=== PATIENT | male | born 1965 | race American Indian/Alaskan Native ===

== ENCOUNTER 2022-01-04 21:35 | Emergency (ER) | payer MEDICARE ==
[2022-01-05 00:51] VITALS: BP 128/76
[2022-01-05 01:24] LABS: Basophils # (Auto) 0.1 K/mm3 (0.0-0.1); Basophils % (Auto) 1.2 % (0.0-1.8); Eosinophils # (Auto) 0.7 K/mm3 (0.0-0.4); Eosinophils % (Auto) 7.8 % (0.0-4.3); Hematocrit 38.6 % (35.5-45.6); Hemoglobin 12.7 gm/dl (11.8-15.2); Lymphocytes # (Auto) 2.7 K/mm3 (1.2-5.4); Lymphocytes % (Auto) 32.3 % (13.4-35.0); Mean Corpuscular HGB Conc 33 % (32-34); Mean Corpuscular Volume 90 fl (84-94); Monocytes # (Auto) 0.5 K/mm3 (0.0-0.8); Monocytes % (Auto) 6.4 % (0.0-7.3); Platelet Count 228 K/mm3 (140-440); Red Blood Count 4.27 M/mm3 (3.65-5.03); Red Cell Distribution Width 13.1 % (13.2-15.2)
[2022-01-05 01:29] LABS: Calcium 9.1 mg/dL (8.4-10.2)
[2022-01-05 02:27] LABS: Amphetamine Screen,Urine Negative; Bacteria,Urine 1+ /HPF (Negative); Benzodiazepines Screen,Urine Negative; Bilirubin,Urine NEG (Negative); Blood,Urine NEG (Negative); Cannabinoid Screen,Urine Negative; Cocaine Screen,Urine Negative; Color,Urine Yellow (Yellow); Hyaline Casts,Urine 21 /LPF; Methadone Screen,Urine Negative; Mucus,Urine FEW /HPF; Opiate Screen,Urine Negative; Urobilinogen,Urine < 2.0 mg/dL (<2.0); WBC,Urine < 1.0 /HPF (0.0-6.0)
--- NOTE | 2022-01-05 04:47 | Emergency Department Report ---
ED Medical Clearance HPI - General Chief complaint: Medical Clearance Stated complaint: MEDICAL CLEARANCE Time Seen by Provider: 01/05/22 03:52 Source: patient Mode of arrival: Ambulatory - History of Present Illness Initial comments: 56-year-old male patient at [place] left to go to [facility] today when he came back with advised he needs to be cleared to return to the facility for treatment. He reports no chest pain or palpitations, no nausea, no vomiting no fever, chills, sweats. No illicit drug use. Drug test was performed while outside and came reportedly negative. MD Complaint: medical clearance request Alledged Intoxication: No Compliant with Home Medications: No Traumatic Symptoms: denies traumatic injury Associated Symptoms: denies other symptoms Treatments Prior to Arrival: none Allergies/Adverse reactions: Allergies Allergy/AdvReac Type Severity Reaction Status Date / Time amoxicillin Allergy Itching Verified 01/05/22 00:53 metformin Allergy Hives Verified 01/05/22 00:53 ED Review of Systems ROS: Stated complaint: MEDICAL CLEARANCE Other details as noted in HPI Comment: All other systems reviewed and negative ED Past Medical Hx - Past Medical History Previous Medical History?: Yes Hx Diabetes: Yes - Surgical History Past Surgical History?: No - Social History Smoking Status: Current Every Day Smoker Substance Use Type: None ED Physical Exam - General Limitations: No Limitations General appearance: alert, in no apparent distress - Head Head exam: Present: atraumatic, normocephalic - Eye Eye exam: Present: normal appearance, PERRL, EOMI Pupils: Present: normal accommodation - ENT ENT exam: Present: normal exam, normal orophraynx, mucous membranes moist, TM's normal bilaterally - Neck Neck exam: Present: normal inspection, full ROM - Respiratory Respiratory exam: Present: normal lung sounds bilaterally. Absent: respiratory distress - Cardiovascular Cardiovascular Exam: Present: regular rate, normal rhythm. Absent: systolic murmur, diastolic murmur, rubs, gallop - GI/Abdominal GI/Abdominal exam: Present: soft, normal bowel sounds - Rectal Rectal exam: Present: deferred - Extremities Exam Extremities exam: Present: normal inspection - Back Exam Back exam: Present: normal inspection - Neurological Exam Neurological exam: Present: alert, oriented X3 - Psychiatric Psychiatric exam: Present: normal affect, normal mood - Skin Skin exam: Present: warm, dry, intact, normal color. Absent: rash ED Course Vital Signs 01/05/22 00:49 Temperature 98.6 F Pulse Rate 101 H Respiratory 18 Rate Blood Pressure 128/76 O2 Sat by Pulse 99 Oximetry ED Medical Decision Making - Lab Data Result diagrams: 01/05/22 00:57 01/05/22 00:57 ED Disposition Clinical Impression: Medical clearance for psychiatric admission Disposition: 01 HOME / SELF CARE / HOMELESS Is pt being admited?: No Does the pt Need Aspirin: No Condition: Stable Instructions: Medical Screening Exam Referrals: PRIMARY CARE [Primary Care Provider] - 3-5 Days
== END 2022-01-05 06:31 | disposition home or self-care (01) ==
LOC: ED 21:35
DX: E11.8 Type 2 diabetes mellitus with unspecified complications (principal); Z13.30 Encounter for screening examination for mental health and behavioral disorders, unspecified; F17.200 Nicotine dependence, unspecified, uncomplicated
CPT/HCPCS: 36415; 80048; 80307; 80320; 81001; 85025; 99283; G0480

== ENCOUNTER 2022-07-10 14:57 | Inpatient (IN) | payer MEDICARE ==
--- NOTE | 2022-07-11 20:40 | Consultation ---
History of Present Illness - Reason for Consult Consult date: 07/11/22 Requesting physician: TERESA ADAMS Medications and Allergies Allergies Allergy/AdvReac Type Severity Reaction Status Date / Time amoxicillin Allergy Itching Verified 01/05/22 00:53 metformin Allergy Hives Verified 01/05/22 00:53 Home Medications Medication Instructions Recorded Confirmed Last Taken Type Aspirin [Adult Aspirin] 81 mg PO DAILY 07/11/22 07/11/22 Unknown History Hydroxyzine HCl [hydrOXYzine] 50 mg PO TID PRN 07/11/22 07/11/22 Unknown History Insulin Detemir [Levemir VIAL] 20 units SUB-Q BID 07/11/22 07/11/22 Unknown History Omeprazole 40 mg PO DAILY 07/11/22 07/11/22 Unknown History Oxycodone HCl/Acetaminophen 1 each PO Q8H PRN 07/11/22 07/11/22 Unknown History [Oxycodone-Acetaminophen 10-325] Pravastatin [Pravachol] 40 mg PO DAILY 07/11/22 07/11/22 Unknown History Prazosin 1 mg PO QHS 07/11/22 07/11/22 Unknown History Pregabalin [Lyrica] 75 mg PO QAM&QHS 07/11/22 07/11/22 Unknown History Valsartan/Hydrochlorothiazide 1 tab PO DAILY 07/11/22 07/11/22 Unknown History [Valsartan-Hctz 160-12.5 mg Tab] amLODIPine [Norvasc] 5 mg PO DAILY 07/11/22 07/11/22 Unknown History glipiZIDE [Glucotrol] 10 mg PO BID 07/11/22 07/11/22 Unknown History traZODone [Desyrel] 50 mg PO QHS 07/11/22 07/11/22 Unknown History Active Meds: Active Medications Insulin Human Lispro (Insulin Lispro 100 Unit/Ml) 0 unit SUB-Q ACHS [facility]; Protocol Trazodone HCl (Trazodone 100 Mg Tab) 100 mg PO QHS [facility] Exam - Constitutional General appearance: Present: no acute distress, well-nourished - EENT Eyes: Present: PERRL ENT: hearing intact, clear oral mucosa - Neck Neck: Present: supple, normal ROM - Respiratory Respiratory effort: normal Respiratory: bilateral: CTA - Cardiovascular Heart Sounds: Present: S1 & S2. Absent: rub, click - Extremities Extremities: pulses symmetrical, No edema Peripheral Pulses: within normal limits - Abdominal General gastrointestinal: Present: soft, non-tender, non-distended, normal bowel sounds Male genitourinary: Present: normal - Integumentary Integumentary: Present: clear, warm, dry - Musculoskeletal Musculoskeletal: gait normal, strength equal bilaterally - Psychiatric Psychiatric: appropriate mood/affect, intact judgment & insight - Neurologic Neurologic: CNII-XII intact, moves all extremities
[2022-07-11] MEDS: traZODone 100 MG TAB PO SCH (21:03)
[2022-07-11 21:53] LABS: Basophils # (Auto) 0.2 K/mm3 (0.0-0.1); Basophils % (Auto) 2.3 % (0.0-1.8); Eosinophils # (Auto) 0.3 K/mm3 (0.0-0.4); Eosinophils % (Auto) 3.8 % (0.0-4.3); Hematocrit 32.4 % (35.5-45.6); Hemoglobin 11.1 gm/dl (11.8-15.2); Lymphocytes # (Auto) 1.8 K/mm3 (1.2-5.4); Lymphocytes % (Auto) 21.4 % (13.4-35.0); Mean Corpuscular HGB Conc 34 % (32-34); Mean Corpuscular Volume 87 fl (84-94); Monocytes # (Auto) 0.7 K/mm3 (0.0-0.8); Monocytes % (Auto) 8.5 % (0.0-7.3); Platelet Count 341 K/mm3 (140-440); Red Blood Count 3.71 M/mm3 (3.65-5.03); Red Cell Distribution Width 14.4 % (13.2-15.2)
[2022-07-11] MEDS: INSULIN LISPRO 100 UNIT/ML SUB-Q SCH (22:03)
[2022-07-11 22:09] LABS: Alanine Aminotransferase 10 units/L (7-56); Albumin 3.2 g/dL (3.9-5); BUN/Creatinine Ratio 14; Blood Urea Nitrogen 18 mg/dL (9-20); Calcium 8.8 mg/dL (8.4-10.2); Hemolysis Index 2
[2022-07-11 22:31] LABS: Chol/HDL Ratio 3.58 %
[2022-07-12] MEDS: INSULIN LISPRO 100 UNIT/ML SUB-Q SCH ×4 (07:30→21:21)
--- NOTE | 2022-07-12 09:27 | History and Physical Report ---
GP History & Physical - History of Present Illness Date of admission: 07/11/22 Date of Examination: 07/12/22 Reason for Admission: Danger to self, Failure of Outpatient Treatment, Severe anxiety/depression History of Present Illness: The patient was seen today. He has a stated history of PTSD, and Bipolar. He was admitted to [facility] for suicide attempt by plan to overdose on Cocaine. The patient says he is severely depressed. He says he has been off his meds for about a month. He could not recall any of his meds but vistaril. The patient still endorses suicidal thoughts with a plan to overdose. He does have a past attempt of suicide in the past. He denies homicidal thoughts and hallucinations. PAST PSYCHIATRIC HISTORY: Diagnoses: Bipolar Disorder, PTSD Suicide attempts or Self-harm behavior: Yes Prior psychiatric hospitalizations: Yes Substance Abuse history: Cocaine Previous psychiatric medications tried: Vistaril Outpatient treatment: Yes PAST MEDICAL HISTORY: Chronic neck pain Family Psychiatric History: None reported or documented SOCIAL HISTORY Marital Status: Living Arrangements: alone Employment Status: Unemployed Access to guns/weapons: Denies Education: History of Abuse:Denies Legal History: Denies REVIEW OF SYSTEMS Constitutional: Negative for weight loss ENT: Negative for stridor Respiratory: Negative for cough or hemoptysis All other systems reviewed and are negative MENTAL STATUS EXAMINATION General Appearance and Behavior: Age appropriate, wearing appropriate clothes, cooperative, polite with questioning, good eye contact Cooperation: cooperative Psychomotor Behavior: Psychomotor normal Mood: "Severely Depressed" Affect and affective range: congruent with stated affect, tearful Thought Process: Goal directed Thought Content: Reality oriented Speech: Normal volume, Regular rate and rhythm Suicidal Ideation: Yes Homicidal Ideation: Denies Hallucination: Denies Delusions: Denies Impulse Control: Limited Insight and Judgment: Limited Memory: Intact Attention: attentive Orientation: Alert and oriented Diagnoses: Bipolar Disorder Treatment Plan Patient admitted for inpatient psychiatric evaluation, medication adjustment and close monitoring The patient's behavior, mood, sleep and appetite will be closely monitored. Patient enrolled in individual and group therapeutic sessions and encouraged to attend. Patient provided with a safe and structured environment. Patient's physical health needs will be addressed by the Hospitalist. Hospitalist Consulted Labs including CBC, CMP, Lipid profile and Hemoglobin A1C levels ordered for baseline reference Social Assessment will be completed and the Telephone Solicitor will work with patient and family to ensure a suitable and safe disposition Medication adjustment will be made as clinically indicated Continue home meds Start Depkoate DR 125mg po BID Usual Wellness Voodoo/Preservation: - Start Trazodone 50 mg po QHS & 50 mg po QHS PRN between 10 PM & 2 AM for insomnia - Start Melatonin 5 mg po QHS to promote circadian rhythm The patient agreed on the treatment plan, understood the risk, benefit, alternative treatment, potential consequence of no treatment, and gave informed consent. Estimated days: 7 Post hospital care: primary care provider, psychiatric provider Case staffed with Dr. Gleason Legal Status: Voluntary Reaction to Hospitalization: Accepting Medications and Allergies Allergies Allergy/AdvReac Type Severity Reaction Status Date / Time amoxicillin Allergy Itching Verified 01/05/22 00:53 metformin Allergy Hives Verified 01/05/22 00:53 Home Medications Medication Instructions Recorded Confirmed Last Taken Type Aspirin [Adult Aspirin] 81 mg PO DAILY 07/11/22 07/11/22 Unknown History Hydroxyzine HCl [hydrOXYzine] 50 mg PO TID PRN 07/11/22 07/11/22 Unknown History Insulin Detemir [Levemir VIAL] 20 units SUB-Q BID 07/11/22 07/11/22 Unknown History Omeprazole 40 mg PO DAILY 07/11/22 07/11/22 Unknown History Oxycodone HCl/Acetaminophen 1 each PO Q8H PRN 07/11/22 07/11/22 Unknown History [Oxycodone-Acetaminophen 10-325] Pravastatin [Pravachol] 40 mg PO DAILY 07/11/22 07/11/22 Unknown History Prazosin 1 mg PO QHS 07/11/22 07/11/22 Unknown History Pregabalin [Lyrica] 75 mg PO QAM&QHS 07/11/22 07/11/22 Unknown History Valsartan/Hydrochlorothiazide 1 tab PO DAILY 07/11/22 07/11/22 Unknown History [Valsartan-Hctz 160-12.5 mg Tab] amLODIPine [Norvasc] 5 mg PO DAILY 07/11/22 07/11/22 Unknown History glipiZIDE [Glucotrol] 10 mg PO BID 07/11/22 07/11/22 Unknown History traZODone [Desyrel] 50 mg PO QHS 08/27/22 08/27/22 Unknown History Active Meds: Active Medications Insulin Human Lispro (Insulin Lispro 100 Unit/Ml) 0 unit SUB-Q ACHS [facility]; Protocol Last Admin: 07/11/22 22:03 Dose: 10 unit Trazodone HCl (Trazodone 100 Mg Tab) 100 mg PO QHS [facility] Last Admin: 07/11/22 21:03 Dose: 100 mg Results - Results Labs/Vitals: Laboratory Last Values WBC 8.3 K/mm3 (4.5-11.0) 07/11/22 21:35 RBC 3.71 M/mm3 (3.65-5.03) 07/11/22 21:35 Hgb 11.1 gm/dl (11.8-15.2) L 07/11/22 21:35 Hct 32.4 % (35.5-45.6) L 07/11/22 21:35 MCV 87 fl (84-94) 07/11/22 21:35 MCH 30 pg (28-32) 07/11/22 21:35 MCHC 34 % (32-34) 07/11/22 21:35 RDW 14.4 % (13.2-15.2) 07/11/22 21:35 Plt Count 341 K/mm3 (140-440) 07/11/22 21:35 Lymph % (Auto) 21.4 % (13.4-35.0) 07/11/22 21:35 [place] % (Auto) 8.5 % (0.0-7.3) H 07/11/22 21:35 Eos % (Auto) 3.8 % (0.0-4.3) 07/11/22 21:35 Baso % (Auto) 2.3 % (0.0-1.8) H 07/11/22 21:35 Lymph # (Auto) 1.8 K/mm3 (1.2-5.4) 07/11/22 21:35 [place] # (Auto) 0.7 K/mm3 (0.0-0.8) 07/11/22 21:35 Eos # (Auto) 0.3 K/mm3 (0.0-0.4) 07/11/22 21:35 Baso # (Auto) 0.2 K/mm3 (0.0-0.1) H 07/11/22 21:35 Seg Neutrophils % 64.0 % (40.0-70.0) 07/11/22 21:35 Seg Neutrophils # 5.3 K/mm3 (1.8-7.7) 07/11/22 21:35 Sodium 135 mmol/L (137-145) L 07/11/22 21:35 Potassium 4.2 mmol/L (3.6-5.0) 07/11/22 21:35 Chloride 101.8 mmol/L (98-107) 07/11/22 21:35 Carbon Dioxide 25 mmol/L (22-30) 07/11/22 21:35 Anion Gap 12 mmol/L 07/11/22 21:35 BUN 18 mg/dL (9-20) 07/11/22 21:35 Creatinine 1.3 mg/dL (0.8-1.3) 07/11/22 21:35 Estimated GFR > 60 ml/min 07/11/22 21:35 BUN/Creatinine Ratio 14 % 07/11/22 21:35 Glucose 315 mg/dL (75-100) H 07/11/22 21:35 POC Glucose 132 mg/dL (70-105) H 07/12/22 06:27 Hemoglobin A1c 10.9 % (4-6) H 07/11/22 21:35 Calcium 8.8 mg/dL (8.4-10.2) 07/11/22 21:35 Total Bilirubin 0.20 mg/dL (0.1-1.2) 07/11/22 21:35 AST 10 units/L (5-40) 07/11/22 21:35 ALT 10 units/L (7-56) 07/11/22 21:35 Alkaline Phosphatase 88 units/L (35-129) 07/11/22 21:35 Total Protein 6.2 g/dL (6.3-8.2) L 07/11/22 21:35 Albumin 3.2 g/dL (3.9-5) L 07/11/22 21:35 Albumin/Globulin Ratio 1.1 % 07/11/22 21:35 Triglycerides 117 mg/dL (2-149) 07/11/22 21:35 Cholesterol 104 mg/dL (50-199) 07/11/22 21:35 LDL Cholesterol Direct 49 mg/dL (50-130) L 07/11/22 21:35 HDL Cholesterol 29 mg/dL (40-59) L 07/11/22 21:35 Cholesterol/HDL Ratio 3.58 % 07/11/22 21:35 TSH 0.808 mlU/mL (0.270-4.200) 07/11/22 21:35 Last Vital Signs Temp 99.0 F 07/11/22 22:00 Pulse 91 H 07/11/22 22:00 Resp 18 07/11/22 22:00 BP 113/61 07/11/22 22:00 Pulse Ox 96 07/11/22 22:00 Physical Examination - Constitutional Vitals: Vital Signs Temp Pulse Resp BP Pulse Ox 99.0 F 91 H 18 113/61 96 07/11/22 22:00 07/11/22 22:00 07/11/22 22:00 07/11/22 22:00 07/11/22 22:00 Temperature -Last 24 Hours Temperature 99.0 F Mental Status Exam - Vital signs Last Vital Signs Temp 99.0 F 07/11/22 22:00 Pulse 91 H 07/11/22 22:00 Resp 18 07/11/22 22:00 BP 113/61 07/11/22 22:00 Pulse Ox 96 07/11/22 22:00 Physician Certification - Certification Statement Physician Certification Statement: This is an acknowledgement statement that GEMINI BAUMANN is a 57 year old M who requires inpatient psychiatric admission for treatment which could reasonably be expected to improve the patient's condition for Estimated period of time patient will need to remain in the hospital: [ ] Plan for post-hospital care: [ ]
[2022-07-12] MEDS ORDERED: hydrOXYzine HCL 25 MG TAB PO PRN (09:32)
[2022-07-12] MEDS ORDERED: NON-FORMULARY EACH (Omeprazole [Omeprazole] 40 MG Capsule.Dr) PO SCH (10:00)
[2022-07-12] MEDS ORDERED: NON-FORMULARY EACH (Insulin Detemir [Levemir Vial] 100 UNIT/ML Vial) SUB-Q SCH (10:00)
[2022-07-12] MEDS: amLODIPine 5 MG TAB PO SCH (10:15)
[2022-07-12] MEDS: VALSARTAN 160MG TAB PO SCH (10:15)
[2022-07-12] MEDS: hydroCHLOROthiazide 12.5 MG CAP PO SCH (10:17)
[2022-07-12] MEDS: PRAVASTATIN 40 MG TAB PO SCH (10:24)
[2022-07-12] MEDS: PREGABALIN 75 MG CAP PO SCH ×2 (10:25→21:18)
[2022-07-12] MEDS: DIVALPROEX DR 125 MG TAB PO SCH ×2 (10:25→21:18)
[2022-07-12] MEDS: PANTOPRAZOLE 40 MG TAB PO SCH (10:25)
[2022-07-12] MEDS: ASPIRIN EC 81 MG TAB PO SCH (10:25)
[2022-07-12] MEDS: glipiZIDE 10 MG TAB PO SCH ×2 (10:26→21:18)
[2022-07-12] MEDS: INSULIN GLARGINE 100 UNITS/ML SUB-Q SCH ×2 (10:33→22:41)
[2022-07-12] MEDS: traZODone 100 MG TAB PO SCH (21:18)
[2022-07-12] MEDS: PRAZOSIN 1 MG CAP PO SCH (21:19)
[2022-07-13] MEDS: INSULIN LISPRO 100 UNIT/ML SUB-Q SCH ×4 (08:30→21:11)
[2022-07-13] MEDS: glipiZIDE 10 MG TAB PO SCH ×2 (08:44→16:54)
--- NOTE | 2022-07-13 09:57 | Progress Note ---
Subjective Date of service: 07/13/22 Principal diagnosis: Major Depressive disorder, Cocaine Use Disorder Subjective Comment: The patient was seen today. He says he is still depressed. He still endorses SI. When asked about a plan, the patient says "I've been trying to think of one." He says he did not sleep well. He says he has a headache. REVIEW OF SYSTEMS Constitutional: Negative for weight loss ENT: Negative for stridor Respiratory: Negative for cough or hemoptysis All other systems reviewed and are negative MENTAL STATUS EXAMINATION General Appearance and Behavior: Age appropriate, wearing appropriate clothes, cooperative, polite with questioning, good eye contact Cooperation: cooperative Psychomotor Behavior: Psychomotor normal Mood: "Severely Depressed" Affect and affective range: congruent with stated affect, tearful Thought Process: Goal directed Thought Content: Reality oriented Speech: Normal volume, Regular rate and rhythm Suicidal Ideation: Yes Homicidal Ideation: Denies Hallucination: Denies Delusions: Denies Impulse Control: Limited Insight and Judgment: Limited Memory: Intact Attention: attentive Orientation: Alert and oriented Diagnoses: Bipolar Disorder Treatment Plan Patient admitted for inpatient psychiatric evaluation, medication adjustment and close monitoring The patient's behavior, mood, sleep and appetite will be closely monitored. Patient enrolled in individual and group therapeutic sessions and encouraged to attend. Patient provided with a safe and structured environment. Patient's physical health needs will be addressed by the Hospitalist. Hospitalist Consulted Labs including CBC, CMP, Lipid profile and Hemoglobin A1C levels ordered for baseline reference Social Assessment will be completed and the Cash Van Salesperson will work with patient and family to ensure a suitable and safe disposition Medication adjustment will be made as clinically indicated Start Ibuprofen 400mg po q6h prn pain Increase Depkoate DR 250mg po BID Usual Wellness Ep[employer]/Preservation: - Start Trazodone 50 mg po QHS & 50 mg po QHS PRN between 10 PM & 2 AM for insomnia - Start Melatonin 5 mg po QHS to promote circadian rhythm The patient agreed on the treatment plan, understood the risk, benefit, alternative treatment, potential consequence of no treatment, and gave informed consent. Estimated days: 7 Post hospital care: primary care provider, psychiatric provider Case staffed with Dr. Gleason Medications and Allergies Allergies Allergy/AdvReac Type Severity Reaction Status Date / Time amoxicillin Allergy Itching Verified 01/05/22 00:53 metformin Allergy Hives Verified 01/05/22 00:53 Home Medications Medication Instructions Recorded Confirmed Last Taken Type Aspirin [Adult Aspirin] 81 mg PO DAILY 07/11/22 07/11/22 Unknown History Hydroxyzine HCl [hydrOXYzine] 50 mg PO TID PRN 07/11/22 07/11/22 Unknown History Insulin Detemir [Levemir VIAL] 20 units SUB-Q BID 07/11/22 07/11/22 Unknown History Omeprazole 40 mg PO DAILY 07/11/22 07/11/22 Unknown History Oxycodone HCl/Acetaminophen 1 each PO Q8H PRN 07/11/22 07/11/22 Unknown History [Oxycodone-Acetaminophen 10-325] Pravastatin [Pravachol] 40 mg PO DAILY 07/11/22 07/11/22 Unknown History Prazosin 1 mg PO QHS 07/11/22 07/11/22 Unknown History Pregabalin [Lyrica] 75 mg PO QAM&QHS 07/11/22 07/11/22 Unknown History Valsartan/Hydrochlorothiazide 1 tab PO DAILY 07/11/22 07/11/22 Unknown History [Valsartan-Hctz 160-12.5 mg Tab] amLODIPine [Norvasc] 5 mg PO DAILY 07/11/22 07/11/22 Unknown History glipiZIDE [Glucotrol] 10 mg PO BID 07/11/22 07/11/22 Unknown History traZODone [Desyrel] 50 mg PO QHS 07/11/22 07/11/22 Unknown History Active Meds: Active Medications Amlodipine Besylate (Amlodipine 5 Mg Tab) 5 mg PO DAILY [facility] Last Admin: 07/12/22 10:15 Dose: Not Given Aspirin (Aspirin Ec 81 Mg Tab) 81 mg PO DAILY [facility] Last Admin: 07/12/22 10:25 Dose: 81 mg Divalproex Sodium (Divalproex Dr 125 Mg Tab) 125 mg PO BID [facility] Last Admin: 07/12/22 21:18 Dose: 125 mg Glipizide (Glipizide 10 Mg Tab) 10 mg PO BIDDIAB [facility] Last Admin: 07/13/22 08:44 Dose: 10 mg Hydrochlorothiazide (Hydrochlorothiazide 12.5 Mg Cap) 12.5 mg PO QDAY [facility] Last Admin: 07/12/22 10:17 Dose: Not Given Hydroxyzine HCl (Hydroxyzine Hcl 25 Mg Tab) 50 mg PO TID PRN PRN Reason: Anxiety Insulin Glargine (Insulin Glargine 100 Units/Ml) 20 units SUB-Q BID [facility] Last Admin: 07/12/22 22:41 Dose: 20 units Insulin Human Lispro (Insulin Lispro 100 Unit/Ml) 0 unit SUB-Q ACHS [facility]; Protocol Last Admin: 07/13/22 08:30 Dose: 3 unit Pantoprazole Sodium (Pantoprazole 40 Mg Tab) 40 mg PO QAM [facility] Last Admin: 07/12/22 10:25 Dose: 40 mg Pravastatin Sodium (Pravastatin 40 Mg Tab) 40 mg PO DAILY [facility] Last Admin: 07/12/22 10:24 Dose: 40 mg Prazosin HCl (Prazosin 1 Mg Cap) 1 mg PO QHS [facility] Last Admin: 07/12/22 21:19 Dose: 1 mg Pregabalin (Pregabalin 75 Mg Cap) 75 mg PO 1000,2200 [facility] Last Admin: 07/12/22 21:18 Dose: 75 mg Trazodone HCl (Trazodone 100 Mg Tab) 100 mg PO QHS [facility] Last Admin: 07/12/22 21:18 Dose: 100 mg Valsartan (Valsartan 160mg Tab) 160 mg PO QDAY [facility] Last Admin: 07/12/22 10:15 Dose: Not Given Results - Results Labs/Vitals: Laboratory Last Values WBC 8.3 K/mm3 (4.5-11.0) 07/11/22 21:35 RBC 3.71 M/mm3 (3.65-5.03) 07/11/22 21:35 Hgb 11.1 gm/dl (11.8-15.2) L 07/11/22 21:35 Hct 32.4 % (35.5-45.6) L 07/11/22 21:35 MCV 87 fl (84-94) 07/11/22 21:35 MCH 30 pg (28-32) 07/11/22 21:35 MCHC 34 % (32-34) 07/11/22 21:35 RDW 14.4 % (13.2-15.2) 07/11/22 21:35 Plt Count 341 K/mm3 (140-440) 07/11/22 21:35 Lymph % (Auto) 21.4 % (13.4-35.0) 07/11/22 21:35 [place] % (Auto) 8.5 % (0.0-7.3) H 07/11/22 21:35 Eos % (Auto) 3.8 % (0.0-4.3) 07/11/22 21:35 Baso % (Auto) 2.3 % (0.0-1.8) H 07/11/22 21:35 Lymph # (Auto) 1.8 K/mm3 (1.2-5.4) 07/11/22 21:35 [place] # (Auto) 0.7 K/mm3 (0.0-0.8) 07/11/22 21:35 Eos # (Auto) 0.3 K/mm3 (0.0-0.4) 07/11/22 21:35 Baso # (Auto) 0.2 K/mm3 (0.0-0.1) H 07/11/22 21:35 Seg Neutrophils % 64.0 % (40.0-70.0) 07/11/22 21:35 Seg Neutrophils # 5.3 K/mm3 (1.8-7.7) 07/11/22 21:35 Sodium 135 mmol/L (137-145) L 07/11/22 21:35 Potassium 4.2 mmol/L (3.6-5.0) 07/11/22 21:35 Chloride 101.8 mmol/L (98-107) 07/11/22 21:35 Carbon Dioxide 25 mmol/L (22-30) 07/11/22 21:35 Anion Gap 12 mmol/L 07/11/22 21:35 BUN 18 mg/dL (9-20) 07/11/22 21:35 Creatinine 1.3 mg/dL (0.8-1.3) 07/11/22 21:35 Estimated GFR > 60 ml/min 07/11/22 21:35 BUN/Creatinine Ratio 14 % 07/11/22 21:35 Glucose 315 mg/dL (75-100) H 07/11/22 21:35 POC Glucose 234 mg/dL (70-105) H 07/12/22 19:43 Hemoglobin A1c 10.9 % (4-6) H 07/11/22 21:35 Calcium 8.8 mg/dL (8.4-10.2) 07/11/22 21:35 Total Bilirubin 0.20 mg/dL (0.1-1.2) 07/11/22 21:35 AST 10 units/L (5-40) 07/11/22 21:35 ALT 10 units/L (7-56) 07/11/22 21:35 Alkaline Phosphatase 88 units/L (35-129) 07/11/22 21:35 Total Protein 6.2 g/dL (6.3-8.2) L 07/11/22 21:35 Albumin 3.2 g/dL (3.9-5) L 07/11/22 21:35 Albumin/Globulin Ratio 1.1 % 07/11/22 21:35 Triglycerides 117 mg/dL (2-149) 07/11/22 21:35 Cholesterol 104 mg/dL (50-199) 07/11/22 21:35 LDL Cholesterol Direct 49 mg/dL (50-130) L 07/11/22 21:35 HDL Cholesterol 29 mg/dL (40-59) L 07/11/22 21:35 Cholesterol/HDL Ratio 3.58 % 07/11/22 21:35 TSH 0.808 mlU/mL (0.270-4.200) 07/11/22 21:35 Last Vital Signs Temp 98.3 F 07/13/22 07:27 Pulse 89 07/13/22 07:27 Resp 16 07/13/22 07:27 BP 119/66 07/13/22 07:27 Pulse Ox 98 07/13/22 07:27
[2022-07-13] MEDS: VALSARTAN 160MG TAB PO SCH (10:23)
[2022-07-13] MEDS: hydroCHLOROthiazide 12.5 MG CAP PO SCH (10:25)
[2022-07-13] MEDS: PANTOPRAZOLE 40 MG TAB PO SCH (10:27)
[2022-07-13] MEDS: PREGABALIN 75 MG CAP PO SCH ×2 (10:27→21:13)
[2022-07-13] MEDS: ASPIRIN EC 81 MG TAB PO SCH (10:27)
[2022-07-13] MEDS: INSULIN GLARGINE 100 UNITS/ML SUB-Q SCH ×2 (10:28→21:12)
[2022-07-13] MEDS: amLODIPine 5 MG TAB PO SCH (10:36)
[2022-07-13] MEDS: PRAVASTATIN 40 MG TAB PO SCH (10:43)
[2022-07-13] MEDS ORDERED: IBUPROFEN 400 MG TAB PO PRN (11:00)
[2022-07-13] MEDS: DIVALPROEX DR 125 MG TAB PO SCH (11:26)
[2022-07-13] MEDS: DIVALPROEX DR 250 MG TAB PO SCH (21:11)
[2022-07-13] MEDS: traZODone 100 MG TAB PO SCH (21:11)
[2022-07-13] MEDS: PRAZOSIN 1 MG CAP PO SCH (21:12)
[2022-07-14] MEDS: INSULIN LISPRO 100 UNIT/ML SUB-Q SCH ×5 (07:39→21:55)
[2022-07-14] MEDS: glipiZIDE 10 MG TAB PO SCH ×2 (07:40→17:01)
[2022-07-14] MEDS: hydroCHLOROthiazide 12.5 MG CAP PO SCH (09:30)
[2022-07-14] MEDS: PANTOPRAZOLE 40 MG TAB PO SCH (09:30)
[2022-07-14] MEDS: ASPIRIN EC 81 MG TAB PO SCH (09:30)
[2022-07-14] MEDS: PRAVASTATIN 40 MG TAB PO SCH (09:30)
[2022-07-14] MEDS: amLODIPine 5 MG TAB PO SCH (09:31)
[2022-07-14] MEDS: PREGABALIN 75 MG CAP PO SCH ×2 (09:31→21:48)
[2022-07-14] MEDS: DIVALPROEX DR 250 MG TAB PO SCH ×2 (09:32→21:48)
[2022-07-14] MEDS: VALSARTAN 160MG TAB PO SCH (09:33)
[2022-07-14] MEDS: INSULIN GLARGINE 100 UNITS/ML SUB-Q SCH ×3 (09:35→21:55)
--- NOTE | 2022-07-14 09:47 | Progress Note ---
Subjective Date of service: 07/14/22 Principal diagnosis: Major Depressive disorder, Cocaine Use Disorder Subjective Comment: The patient was seen today. He says he feels okay. The patient still endorses SI with a "plan to overdose on pills." He denies hallucinations. REVIEW OF SYSTEMS Constitutional: Negative for weight loss ENT: Negative for stridor Respiratory: Negative for cough or hemoptysis All other systems reviewed and are negative MENTAL STATUS EXAMINATION General Appearance and Behavior: Age appropriate, wearing appropriate clothes, cooperative, polite with questioning, good eye contact Cooperation: cooperative Psychomotor Behavior: Psychomotor normal Mood: "Severely Depressed" Affect and affective range: congruent with stated affect, tearful Thought Process: Goal directed Thought Content: Reality oriented Speech: Normal volume, Regular rate and rhythm Suicidal Ideation: Yes Homicidal Ideation: Denies Hallucination: Denies Delusions: Denies Impulse Control: Limited Insight and Judgment: Limited Memory: Intact Attention: attentive Orientation: Alert and oriented Diagnoses: Bipolar Disorder Treatment Plan Patient admitted for inpatient psychiatric evaluation, medication adjustment and close monitoring The patient's behavior, mood, sleep and appetite will be closely monitored. Patient enrolled in individual and group therapeutic sessions and encouraged to attend. Patient provided with a safe and structured environment. Patient's physical health needs will be addressed by the Hospitalist. Hospitalist Consulted Labs including CBC, CMP, Lipid profile and Hemoglobin A1C levels ordered for baseline reference Social Assessment will be completed and the Mirror Fabrication Supervisor will work with patient and family to ensure a suitable and safe disposition Medication adjustment will be made as clinically indicated Depkoate DR 250mg po BID yesterday No changes made today Usual Wellness Spiritism/Preservation: - Start Trazodone 50 mg po QHS & 50 mg po QHS PRN between 10 PM & 2 AM for insomnia - Start Melatonin 5 mg po QHS to promote circadian rhythm The patient agreed on the treatment plan, understood the risk, benefit, alternative treatment, potential consequence of no treatment, and gave informed consent. Estimated days: 7 Post hospital care: primary care provider, psychiatric provider Case staffed with Dr. Gleason Medications and Allergies Allergies Allergy/AdvReac Type Severity Reaction Status Date / Time amoxicillin Allergy Itching Verified 01/05/22 00:53 metformin Allergy Hives Verified 01/05/22 00:53 Home Medications Medication Instructions Recorded Confirmed Last Taken Type Aspirin [Adult Aspirin] 81 mg PO DAILY 07/11/22 07/11/22 Unknown History Hydroxyzine HCl [hydrOXYzine] 50 mg PO TID PRN 07/11/22 07/11/22 Unknown History Insulin Detemir [Levemir VIAL] 20 units SUB-Q BID 07/11/22 07/11/22 Unknown His tory Omeprazole 40 mg PO DAILY 07/11/22 07/11/22 Unknown History Oxycodone HCl/Acetaminophen 1 each PO Q8H PRN 07/11/22 07/11/22 Unknown History [Oxycodone-Acetaminophen 10-325] Pravastatin [Pravachol] 40 mg PO DAILY 07/11/22 07/11/22 Unknown History Prazosin 1 mg PO QHS 07/11/22 07/11/22 Unknown History Pregabalin [Lyrica] 75 mg PO QAM&QHS 07/11/22 07/11/22 Unknown History Valsartan/Hydrochlorothiazide 1 tab PO DAILY 07/11/22 07/11/22 Unknown History [Valsartan-Hctz 160-12.5 mg Tab] amLODIPine [Norvasc] 5 mg PO DAILY 07/11/22 07/11/22 Unknown History glipiZIDE [Glucotrol] 10 mg PO BID 07/11/22 07/11/22 Unknown History traZODone [Desyrel] 50 mg PO QHS 07/11/22 07/11/22 Unknown History Active Meds: Active Medications Amlodipine Besylate (Amlodipine 5 Mg Tab) 5 mg PO DAILY [facility] Last Admin: 07/14/22 09:31 Dose: 5 mg Aspirin (Aspirin Ec 81 Mg Tab) 81 mg PO DAILY [facility] Last Admin: 07/14/22 09:30 Dose: 81 mg Divalproex Sodium (Divalproex Dr 250 Mg Tab) 250 mg PO BID [facility] Last Admin: 07/14/22 09:32 Dose: 250 mg Glipizide (Glipizide 10 Mg Tab) 10 mg PO BIDDIAB [facility] Last Admin: 07/14/22 07:40 Dose: 10 mg Hydrochlorothiazide (Hydrochlorothiazide 12.5 Mg Cap) 12.5 mg PO QDAY [facility] Last Admin: 07/14/22 09:30 Dose: 12.5 mg Hydroxyzine HCl (Hydroxyzine Hcl 25 Mg Tab) 50 mg PO TID PRN PRN Reason: Anxiety Last Admin: 07/13/22 10:22 Dose: 50 mg Ibuprofen (Ibuprofen 400 Mg Tab) 400 mg PO Q6H PRN PRN Reason: Pain, Mild (1-3) Last Admin: 07/13/22 11:21 Dose: 400 mg Insulin Glargine (Insulin Glargine 100 Units/Ml) 20 units SUB-Q BID [facility] Last Admin: 07/14/22 09:35 Dose: 20 units Insulin Human Lispro (Insulin Lispro 100 Unit/Ml) 0 unit SUB-Q ACHS [facility]; Protocol Last Admin: 07/14/22 07:39 Dose: 3 unit Pantoprazole Sodium (Pantoprazole 40 Mg Tab) 40 mg PO QAM [facility] Last Admin: 07/14/22 09:30 Dose: 40 mg Pravastatin Sodium (Pravastatin 40 Mg Tab) 40 mg PO DAILY [facility] Last Admin: 07/14/22 09:30 Dose: 40 mg Prazosin HCl (Prazosin 1 Mg Cap) 1 mg PO QHS [facility] Last Admin: 07/13/22 21:12 Dose: 1 mg Pregabalin (Pregabalin 75 Mg Cap) 75 mg PO 1000,2200 [facility] Last Admin: 07/14/22 09:31 Dose: 75 mg Trazodone HCl (Trazodone 100 Mg Tab) 100 mg PO QHS [facility] Last Admin: 07/13/22 21:11 Dose: 100 mg Valsartan (Valsartan 160mg Tab) 160 mg PO QDAY [facility] Last Admin: 07/14/22 09:33 Dose: Not Given Results - Results Labs/Vitals: Laboratory Last Values WBC 8.3 K/mm3 (4.5-11.0) 07/11/22 21:35 RBC 3.71 M/mm3 (3.65-5.03) 07/11/22 21:35 Hgb 11.1 gm/dl (11.8-15.2) L 07/11/22 21:35 Hct 32.4 % (35.5-45.6) L 07/11/22 21:35 MCV 87 fl (84-94) 07/11/22 21:35 MCH 30 pg (28-32) 07/11/22 21:35 MCHC 34 % (32-34) 07/11/22 21:35 RDW 14.4 % (13.2-15.2) 07/11/22 21:35 Plt Count 341 K/mm3 (140-440) 07/11/22 21:35 Lymph % (Auto) 21.4 % (13.4-35.0) 07/11/22 21:35 [place] % (Auto) 8.5 % (0.0-7.3) H 07/11/22 21:35 Eos % (Auto) 3.8 % (0.0-4.3) 07/11/22 21:35 Baso % (Auto) 2.3 % (0.0-1.8) H 07/11/22 21:35 Lymph # (Auto) 1.8 K/mm3 (1.2-5.4) 07/11/22 21:35 [place] # (Auto) 0.7 K/mm3 (0.0-0.8) 07/11/22 21:35 Eos # (Auto) 0.3 K/mm3 (0.0-0.4) 07/11/22 21:35 Baso # (Auto) 0.2 K/mm3 (0.0-0.1) H 07/11/22 21:35 Seg Neutrophils % 64.0 % (40.0-70.0) 07/11/22 21:35 Seg Neutrophils # 5.3 K/mm3 (1.8-7.7) 07/11/22 21:35 Sodium 135 mmol/L (137-145) L 07/11/22 21:35 Potassium 4.2 mmol/L (3.6-5.0) 07/11/22 21:35 Chloride 101.8 mmol/L (98-107) 07/11/22 21:35 Carbon Dioxide 25 mmol/L (22-30) 07/11/22 21:35 Anion Gap 12 mmol/L 07/11/22 21:35 BUN 18 mg/dL (9-20) 07/11/22 21:35 Creatinine 1.3 mg/dL (0.8-1.3) 07/11/22 21:35 Estimated GFR > 60 ml/min 07/11/22 21:35 BUN/Creatinine Ratio 14 % 07/11/22 21:35 Glucose 315 mg/dL (75-100) H 07/11/22 21:35 POC Glucose 171 mg/dL (70-105) H 07/14/22 07:16 Hemoglobin A1c 10.9 % (4-6) H 07/11/22 21:35 Calcium 8.8 mg/dL (8.4-10.2) 07/11/22 21:35 Total Bilirubin 0.20 mg/dL (0.1-1.2) 07/11/22 21:35 AST 10 units/L (5-40) 07/11/22 21:35 ALT 10 units/L (7-56) 07/11/22 21:35 Alkaline Phosphatase 88 units/L (35-129) 07/11/22 21:35 Total Protein 6.2 g/dL (6.3-8.2) L 07/11/22 21:35 Albumin 3.2 g/dL (3.9-5) L 07/11/22 21:35 Albumin/Globulin Ratio 1.1 % 07/11/22 21:35 Triglycerides 117 mg/dL (2-149) 07/11/22 21:35 Cholesterol 104 mg/dL (50-199) 07/11/22 21:35 LDL Cholesterol Direct 49 mg/dL (50-130) L 07/11/22 21:35 HDL Cholesterol 29 mg/dL (40-59) L 07/11/22 21:35 Cholesterol/HDL Ratio 3.58 % 07/11/22 21:35 TSH 0.808 mlU/mL (0.270-4.200) 07/11/22 21:35 Last Vital Signs Temp 98.8 F 07/14/22 08:10 Pulse 95 H 07/14/22 09:31 Resp 18 07/14/22 08:10 BP 106/63 07/14/22 09:33 Pulse Ox 97 07/14/22 08:10
--- NOTE | 2022-07-14 11:15 | Progress Note ---
Hospitalist Physical - Constitutional Vitals: Temp Pulse Resp BP Pulse Ox 98.8 F 95 H 18 106/63 97 07/14/22 08:10 07/14/22 09:31 07/14/22 08:10 07/14/22 09:33 07/14/22 08:10 General appearance: Present: no acute distress, well-nourished Results - Labs CBC & Chem 7: 07/11/22 21:35 07/11/22 21:35 Labs: Laboratory Last Values WBC 8.3 K/mm3 (4.5-11.0) 07/11/22 21:35 RBC 3.71 M/mm3 (3.65-5.03) 07/11/22 21:35 Hgb 11.1 gm/dl (11.8-15.2) L 07/11/22 21:35 Hct 32.4 % (35.5-45.6) L 07/11/22 21:35 MCV 87 fl (84-94) 07/11/22 21:35 MCH 30 pg (28-32) 07/11/22 21:35 MCHC 34 % (32-34) 07/11/22 21:35 RDW 14.4 % (13.2-15.2) 07/11/22 21:35 Plt Count 341 K/mm3 (140-440) 07/11/22 21:35 Lymph % (Auto) 21.4 % (13.4-35.0) 07/11/22 21:35 [place] % (Auto) 8.5 % (0.0-7.3) H 07/11/22 21:35 Eos % (Auto) 3.8 % (0.0-4.3) 07/11/22 21:35 Baso % (Auto) 2.3 % (0.0-1.8) H 07/11/22 21:35 Lymph # (Auto) 1.8 K/mm3 (1.2-5.4) 07/11/22 21:35 [place] # (Auto) 0.7 K/mm3 (0.0-0.8) 07/11/22 21:35 Eos # (Auto) 0.3 K/mm3 (0.0-0.4) 07/11/22 21:35 Baso # (Auto) 0.2 K/mm3 (0.0-0.1) H 07/11/22 21:35 Seg Neutrophils % 64.0 % (40.0-70.0) 07/11/22 21:35 Seg Neutrophils # 5.3 K/mm3 (1.8-7.7) 07/11/22 21:35 Sodium 135 mmol/L (137-145) L 07/11/22 21:35 Potassium 4.2 mmol/L (3.6-5.0) 07/11/22 21:35 Chloride 101.8 mmol/L (98-107) 07/11/22 21:35 Carbon Dioxide 25 mmol/L (22-30) 07/11/22 21:35 Anion Gap 12 mmol/L 07/11/22 21:35 BUN 18 mg/dL (9-20) 07/11/22 21:35 Creatinine 1.3 mg/dL (0.8-1.3) 07/11/22 21:35 Estimated GFR > 60 ml/min 07/11/22 21:35 BUN/Creatinine Ratio 14 % 07/11/22 21:35 Glucose 315 mg/dL (75-100) H 07/11/22 21:35 POC Glucose 171 mg/dL (70-105) H 07/14/22 07:16 Hemoglobin A1c 10.9 % (4-6) H 07/11/22 21:35 Calcium 8.8 mg/dL (8.4-10.2) 07/11/22 21:35 Total Bilirubin 0.20 mg/dL (0.1-1.2) 07/11/22 21:35 AST 10 units/L (5-40) 07/11/22 21:35 ALT 10 units/L (7-56) 07/11/22 21:35 Alkaline Phosphatase 88 units/L (35-129) 07/11/22 21:35 Total Protein 6.2 g/dL (6.3-8.2) L 07/11/22 21:35 Albumin 3.2 g/dL (3.9-5) L 07/11/22 21:35 Albumin/Globulin Ratio 1.1 % 07/11/22 21:35 Triglycerides 117 mg/dL (2-149) 07/11/22 21:35 Cholesterol 104 mg/dL (50-199) 07/11/22 21:35 LDL Cholesterol Direct 49 mg/dL (50-130) L 07/11/22 21:35 HDL Cholesterol 29 mg/dL (40-59) L 07/11/22 21:35 Cholesterol/HDL Ratio 3.58 % 07/11/22 21:35 TSH 0.808 mlU/mL (0.270-4.200) 07/11/22 21:35 [place]/IV: Voiding Method Toilet Active Medications - Current Medications Current Medications: Generic Name Dose Route Start Last Admin Trade Name Freq PRN Reason Stop Dose Admin Amlodipine Besylate 5 mg 07/12/22 10:00 07/14/22 09:31 Amlodipine 5 Mg Tab PO 5 mg DAILY [facility] Administration Aspirin 81 mg 07/12/22 10:00 07/14/22 09:30 Aspirin Ec 81 Mg Tab PO 81 mg DAILY [facility] Administration Divalproex Sodium 250 mg 07/13/22 22:00 07/14/22 09:[address] 250 Mg Tab PO 250 mg BID [facility] Administration Glipizide 10 mg 07/13/22 08:00 07/14/22 07:40 Glipizide 10 Mg Tab PO 10 mg BIDDIAB [facility] Administration Hydrochlorothiazide 12.5 mg 07/12/22 10:00 07/14/22 09:30 Hydrochlorothiazide 12.5 Mg Cap PO 12.5 mg QDAY [facility] Administration Hydroxyzine HCl 50 mg 07/12/22 09:32 07/13/22 10:22 Hydroxyzine Hcl 25 Mg Tab PO 50 mg TID PRN Administration Anxiety Ibuprofen 400 mg 07/13/22 11:00 07/13/22 11:21 Ibuprofen 400 Mg Tab PO 400 mg Q6H PRN Administration Pain, Mild (1-3) Insulin Glargine 20 units 07/12/22 10:00 07/14/22 09:35 Insulin Glargine 100 Units/Ml SUB-Q 20 units BID [facility] Administration Insulin Human Lispro 0 unit 07/11/22 22:00 07/14/22 07:39 Insulin Lispro 100 Unit/Ml SUB-Q 3 unit ACHS [facility] Administration Protocol Pantoprazole Sodium 40 mg 07/12/22 10:00 07/14/22 09:30 Pantoprazole 40 Mg Tab PO 40 mg QAM [facility] Administration Pravastatin Sodium 40 mg 07/12/22 10:00 07/14/22 09:30 Pravastatin 40 Mg Tab PO 40 mg DAILY [facility] Administration Prazosin HCl 1 mg 07/12/22 22:00 07/13/22 21:12 Prazosin 1 Mg Cap PO 1 mg QHS [facility] Administration Pregabalin 75 mg 07/12/22 10:00 07/14/22 09:31 Pregabalin 75 Mg Cap PO 75 mg 1000,2200 [facility] Administration Trazodone HCl 100 mg 07/11/22 22:00 07/13/22 21:11 Trazodone 100 Mg Tab PO 100 mg QHS [facility] Administration Valsartan 160 mg 07/12/22 10:00 07/14/22 09:33 Valsartan 160mg Tab PO Not Given QDAY [facility]
[2022-07-14] MEDS: traZODone 100 MG TAB PO SCH (21:47)
[2022-07-14] MEDS: PRAZOSIN 1 MG CAP PO SCH (21:49)
[2022-07-15] MEDS: INSULIN LISPRO 100 UNIT/ML SUB-Q SCH ×4 (09:07→21:19)
[2022-07-15] MEDS: hydroCHLOROthiazide 12.5 MG CAP PO SCH (09:09)
[2022-07-15] MEDS: VALSARTAN 160MG TAB PO SCH (09:10)
[2022-07-15] MEDS: DIVALPROEX DR 250 MG TAB PO SCH ×2 (09:13→21:19)
[2022-07-15] MEDS: PANTOPRAZOLE 40 MG TAB PO SCH (09:13)
[2022-07-15] MEDS: glipiZIDE 10 MG TAB PO SCH ×2 (09:13→16:38)
[2022-07-15] MEDS: PREGABALIN 75 MG CAP PO SCH ×2 (09:13→21:20)
[2022-07-15] MEDS: ASPIRIN EC 81 MG TAB PO SCH (09:14)
[2022-07-15] MEDS: amLODIPine 5 MG TAB PO SCH (09:16)
[2022-07-15] MEDS: PRAVASTATIN 40 MG TAB PO SCH (09:19)
[2022-07-15] MEDS: INSULIN GLARGINE 100 UNITS/ML SUB-Q SCH ×2 (10:01→21:18)
[2022-07-15] MEDS ORDERED: MELATONIN 5 MG TAB PO PRN (11:07)
--- NOTE | 2022-07-15 11:07 | Progress Note ---
Subjective Date of service: 07/15/22 Principal diagnosis: Major Depressive disorder, Cocaine Use Disorder Subjective Comment: The patient was seen today. He says he's doing okay. The patient denies SI/HI or hallucinations. He states he did not sleep at all last night. REVIEW OF SYSTEMS Constitutional: Negative for weight loss ENT: Negative for stridor Respiratory: Negative for cough or hemoptysis All other systems reviewed and are negative MENTAL STATUS EXAMINATION General Appearance and Behavior: Age appropriate, wearing appropriate clothes, cooperative, polite with questioning, good eye contact Cooperation: cooperative Psychomotor Behavior: Psychomotor normal Mood: "Severely Depressed" Affect and affective range: congruent with stated affect, tearful Thought Process: Goal directed Thought Content: Reality oriented Speech: Normal volume, Regular rate and rhythm Suicidal Ideation: Yes Homicidal Ideation: Denies Hallucination: Denies Delusions: Denies Impulse Control: Limited Insight and Judgment: Limited Memory: Intact Attention: attentive Orientation: Alert and oriented Diagnoses: Bipolar Disorder Treatment Plan Patient admitted for inpatient psychiatric evaluation, medication adjustment and close monitoring The patient's behavior, mood, sleep and appetite will be closely monitored. Patient enrolled in individual and group therapeutic sessions and encouraged to attend. Patient provided with a safe and structured environment. Patient's physical health needs will be addressed by the Hospitalist. Hospitalist Consulted Labs including CBC, CMP, Lipid profile and Hemoglobin A1C levels ordered for baseline reference Social Assessment will be completed and the Ship Engineer will work with patient and family to ensure a suitable and safe disposition Medication adjustment will be made as clinically indicated Start Melatonin 5mg po qhs prn insomnia Usual Wellness Evangelical/Preservation: - Start Trazodone 50 mg po QHS & 50 mg po QHS PRN between 10 PM & 2 AM for insomnia - Start Melatonin 5 mg po QHS to promote circadian rhythm The patient agreed on the treatment plan, understood the risk, benefit, alternative treatment, potential consequence of no treatment, and gave informed consent. Estimated days: 7 Post hospital care: primary care provider, psychiatric provider Case staffed with Dr. Gleason Medications and Allergies Allergies Allergy/AdvReac Type Severity Reaction Status Date / Time amoxicillin Allergy Itching Verified 01/05/22 00:53 metformin Allergy Hives Verified 01/05/22 00:53 Home Medications Medication Instructions Recorded Confirmed Last Taken Type Aspirin [Adult Aspirin] 81 mg PO DAILY 07/11/22 07/11/22 Unknown History Hydroxyzine HCl [hydrOXYzine] 50 mg PO TID PRN 07/11/22 07/11/22 Unknown History Insulin Detemir [Levemir VIAL] 20 units SUB-Q BID 07/11/22 07/11/22 Unknown History Omeprazole 40 mg PO DAILY 07/11/22 07/11/22 Unknown History Oxycodone HCl/Acetaminophen 1 each PO Q8H PRN 07/11/22 07/11/22 Unknown History [Oxycodone-Acetaminophen 10-325] Pravastatin [Pravachol] 40 mg PO DAILY 07/11/22 07/11/22 Unknown History Prazosin 1 mg PO QHS 07/11/22 07/11/22 Unknown History Pregabalin [Lyrica] 75 mg PO QAM&QHS 07/11/22 07/11/22 Unknown History Valsartan/Hydrochlorothiazide 1 tab PO DAILY 07/11/22 07/11/22 Unknown History [Valsartan-Hctz 160-12.5 mg Tab] amLODIPine [Norvasc] 5 mg PO DAILY 07/11/22 07/11/22 Unknown History glipiZIDE [Glucotrol] 10 mg PO BID 07/11/22 07/11/22 Unknown History traZODone [Desyrel] 50 mg PO QHS 07/11/22 07/11/22 Unknown History Active Meds: Active Medications Amlodipine Besylate (Amlodipine 5 Mg Tab) 5 mg PO DAILY [facility] Last Admin: 07/15/22 09:16 Dose: Not Given Aspirin (Aspirin Ec 81 Mg Tab) 81 mg PO DAILY [facility] Last Admin: 07/15/22 09:14 Dose: 81 mg Divalproex Sodium (Divalproex Dr 250 Mg Tab) 250 mg PO BID [facility] Last Admin: 07/15/22 09:13 Dose: 250 mg Glipizide (Glipizide 10 Mg Tab) 10 mg PO BIDDIAB [facility] Last Admin: 07/15/22 09:13 Dose: 10 mg Hydrochlorothiazide (Hydrochlorothiazide 12.5 Mg Cap) 12.5 mg PO QDAY [facility] Last Admin: 07/15/22 09:09 Dose: 12.5 mg Hydroxyzine HCl (Hydroxyzine Hcl 25 Mg Tab) 50 mg PO TID PRN PRN Reason: Anxiety Last Admin: 07/13/22 10:22 Dose: 50 mg Ibuprofen (Ibuprofen 400 Mg Tab) 400 mg PO Q6H PRN PRN Reason: Pain, Mild (1-3) Last Admin: 07/13/22 11:21 Dose: 400 mg Insulin Glargine (Insulin Glargine 100 Units/Ml) 20 units SUB-Q BID [facility] Last Admin: 07/15/22 10:01 Dose: 20 units Insulin Human Lispro (Insulin Lispro 100 Unit/Ml) 0 unit SUB-Q ACHS [facility]; Protocol Last Admin: 07/15/22 09:07 Dose: 4 unit Pantoprazole Sodium (Pantoprazole 40 Mg Tab) 40 mg PO QAM [facility] Last Admin: 07/15/22 09:13 Dose: 40 mg Pravastatin Sodium (Pravastatin 40 Mg Tab) 40 mg PO DAILY [facility] Last Admin: 07/15/22 09:19 Dose: 40 mg Prazosin HCl (Prazosin 1 Mg Cap) 1 mg PO QHS [facility] Last Admin: 07/14/22 21:49 Dose: 1 mg Pregabalin (Pregabalin 75 Mg Cap) 75 mg PO 1000,2200 [facility] Last Admin: 07/15/22 09:13 Dose: 75 mg Trazodone HCl (Trazodone 100 Mg Tab) 100 mg PO QHS [facility] Last Admin: 07/14/22 21:47 Dose: 100 mg Valsartan (Valsartan 160mg Tab) 160 mg PO QDAY [facility] Last Admin: 07/15/22 09:10 Dose: 160 mg Results - Results Labs/Vitals: Laboratory Last Values WBC 8.3 K/mm3 (4.5-11.0) 07/11/22 21:35 RBC 3.71 M/mm3 (3.65-5.03) 07/11/22 21:35 Hgb 11.1 gm/dl (11.8-15.2) L 07/11/22 21:35 Hct 32.4 % (35.5-45.6) L 07/11/22 21:35 MCV 87 fl (84-94) 07/11/22 21:35 MCH 30 pg (28-32) 07/11/22 21:35 MCHC 34 % (32-34) 07/11/22 21:35 RDW 14.4 % (13.2-15.2) 07/11/22 21:35 Plt Count 341 K/mm3 (140-440) 07/11/22 21:35 Lymph % (Auto) 21.4 % (13.4-35.0) 07/11/22 21:35 [place] % (Auto) 8.5 % (0.0-7.3) H 07/11/22 21:35 Eos % (Auto) 3.8 % (0.0-4.3) 07/11/22 21:35 Baso % (Auto) 2.3 % (0.0-1.8) H 07/11/22 21:35 Lymph # (Auto) 1.8 K/mm3 (1.2-5.4) 07/11/22 21:35 [place] # (Auto) 0.7 K/mm3 (0.0-0.8) 07/11/22 21:35 Eos # (Auto) 0.3 K/mm3 (0.0-0.4) 07/11/22 21:35 Baso # (Auto) 0.2 K/mm3 (0.0-0.1) H 07/11/22 21:35 Seg Neutrophils % 64.0 % (40.0-70.0) 07/11/22 21:35 Seg Neutrophils # 5.3 K/mm3 (1.8-7.7) 07/11/22 21:35 Sodium 135 mmol/L (137-145) L 07/11/22 21:35 Potassium 4.2 mmol/L (3.6-5.0) 07/11/22 21:35 Chloride 101.8 mmol/L (98-107) 07/11/22 21:35 Carbon Dioxide 25 mmol/L (22-30) 07/11/22 21:35 Anion Gap 12 mmol/L 07/11/22 21:35 BUN 18 mg/dL (9-20) 07/11/22 21:35 Creatinine 1.3 mg/dL (0.8-1.3) 07/11/22 21:35 Estimated GFR > 60 ml/min 07/11/22 21:35 BUN/Creatinine Ratio 14 % 07/11/22 21:35 Glucose 315 mg/dL (75-100) H 07/11/22 21:35 POC Glucose 215 mg/dL (70-105) H 07/15/22 07:26 Hemoglobin A1c 10.9 % (4-6) H 07/11/22 21:35 Calcium 8.8 mg/dL (8.4-10.2) 07/11/22 21:35 Total Bilirubin 0.20 mg/dL (0.1-1.2) 07/11/22 21:35 AST 10 units/L (5-40) 07/11/22 21:35 ALT 10 units/L (7-56) 07/11/22 21:35 Alkaline Phosphatase 88 units/L (35-129) 07/11/22 21:35 Total Protein 6.2 g/dL (6.3-8.2) L 07/11/22 21:35 Albumin 3.2 g/dL (3.9-5) L 07/11/22 21:35 Albumin/Globulin Ratio 1.1 % 07/11/22 21:35 Triglycerides 117 mg/dL (2-149) 07/11/22 21:35 Cholesterol 104 mg/dL (50-199) 07/11/22 21:35 LDL Cholesterol Direct 49 mg/dL (50-130) L 07/11/22 21:35 HDL Cholesterol 29 mg/dL (40-59) L 07/11/22 21:35 Cholesterol/HDL Ratio 3.58 % 07/11/22 21:35 TSH 0.808 mlU/mL (0.270-4.200) 07/11/22 21:35 Last Vital Signs Temp 99.0 F 07/14/22 19:04 Pulse 93 H 07/15/22 09:16 Resp 18 07/14/22 19:04 BP 109/60 07/15/22 09:16 Pulse Ox 98 07/14/22 19:04
[2022-07-15] MEDS: traZODone 100 MG TAB PO SCH (21:19)
[2022-07-15] MEDS: PRAZOSIN 1 MG CAP PO SCH (21:21)
[2022-07-16] MEDS ORDERED: PANTOPRAZOLE 20 MG TAB PO SCH (07:30)
[2022-07-16] MEDS: INSULIN LISPRO 100 UNIT/ML SUB-Q SCH (08:55)
[2022-07-16] MEDS: glipiZIDE 10 MG TAB PO SCH (08:56)
[2022-07-16] MEDS: DIVALPROEX DR 250 MG TAB PO SCH (09:02)
[2022-07-16] MEDS: ASPIRIN EC 81 MG TAB PO SCH (09:03)
[2022-07-16] MEDS: PREGABALIN 75 MG CAP PO SCH (09:03)
[2022-07-16] MEDS: hydroCHLOROthiazide 12.5 MG CAP PO SCH (09:04)
[2022-07-16] MEDS: INSULIN GLARGINE 100 UNITS/ML SUB-Q SCH (09:04)
[2022-07-16] MEDS: amLODIPine 5 MG TAB PO SCH (09:05)
[2022-07-16] MEDS: VALSARTAN 160MG TAB PO SCH (09:06)
[2022-07-16] MEDS: PRAVASTATIN 40 MG TAB PO SCH (09:07)
--- NOTE | 2022-07-16 09:07 | Discharge Summary ---
Providers - Providers Date of Admission: 07/11/22 19:56 Date of discharge: 07/16/22 Attending physician: TERESA ADAMS MD 07/11/22 18:18 Consult to Physician [CONS] Routine Comment: Consulting Provider: DANA WILLIAM Physician Instructions: Reason For Exam: manage medical conditions Primary care physician: [employer] Hospitalization Reason for admission: depression Admitting Diagnosis: F33.1 - MAJOR DEPRESSIVE DISORDER, RECURRENT, MODERATE Condition: Stable Hospital course: The patient was provided inpatient psychiatric treatment with safe and supportive care, medication adjustment, adverse effect monitoring, medical evaluations, medical treatments, assessment and psycho-education. The patient's mood, cognition, behavior, moral support are improved and stabilized. St the time of discharge, the patient had no endangering behavior and no debilitating adverse effects. The patient agreed on potential consequences of no treatment and gave informed consent. Disposition: 01 HOME / SELF CARE / HOMELESS Time spent for discharge: 35 Allergies/Adverse Reactions: Allergies amoxicillin Allergy (Verified 01/05/22 00:53) Itching metformin Allergy (Verified 01/05/22 00:53) Hives Vital Signs: Last Vital Signs Temp 98.7 F 07/15/22 19:13 Pulse 89 07/15/22 21:21 Resp 18 07/15/22 19:13 BP 152/78 07/15/22 21:21 Pulse Ox 96 07/15/22 19:13 Last Lab: Laboratory Last Values WBC 8.3 K/mm3 (4.5-11.0) 07/11/22 21:35 RBC 3.71 M/mm3 (3.65-5.03) 07/11/22 21:35 Hgb 11.1 gm/dl (11.8-15.2) L 07/11/22 21:35 Hct 32.4 % (35.5-45.6) L 07/11/22 21:35 MCV 87 fl (84-94) 07/11/22 21:35 MCH 30 pg (28-32) 07/11/22 21:35 MCHC 34 % (32-34) 07/11/22 21:35 RDW 14.4 % (13.2-15.2) 07/11/22 21:35 Plt Count 341 K/mm3 (140-440) 07/11/22 21:35 Lymph % (Auto) 21.4 % (13.4-35.0) 07/11/22 21:35 [place] % (Auto) 8.5 % (0.0-7.3) H 07/11/22 21:35 Eos % (Auto) 3.8 % (0.0-4.3) 07/11/22 21:35 Baso % (Auto) 2.3 % (0.0-1.8) H 07/11/22 21:35 Lymph # (Auto) 1.8 K/mm3 (1.2-5.4) 07/11/22 21:35 [place] # (Auto) 0.7 K/mm3 (0.0-0.8) 07/11/22 21:35 Eos # (Auto) 0.3 K/mm3 (0.0-0.4) 07/11/22 21:35 Baso # (Auto) 0.2 K/mm3 (0.0-0.1) H 07/11/22 21:35 Seg Neutrophils % 64.0 % (40.0-70.0) 07/11/22 21:35 Seg Neutrophils # 5.3 K/mm3 (1.8-7.7) 07/11/22 21:35 Sodium 135 mmol/L (137-145) L 07/11/22 21:35 Potassium 4.2 mmol/L (3.6-5.0) 07/11/22 21:35 Chloride 101.8 mmol/L (98-107) 07/11/22 21:35 Carbon Dioxide 25 mmol/L (22-30) 07/11/22 21:35 Anion Gap 12 mmol/L 07/11/22 21:35 BUN 18 mg/dL (9-20) 07/11/22 21:35 Creatinine 1.3 mg/dL (0.8-1.3) 07/11/22 21:35 Estimated GFR > 60 ml/min 07/11/22 21:35 BUN/Creatinine Ratio 14 % 07/11/22 21:35 Glucose 315 mg/dL (75-100) H 07/11/22 21:35 POC Glucose 280 mg/dL (70-105) H 07/15/22 19:05 Hemoglobin A1c 10.9 % (4-6) H 07/11/22 21:35 Calcium 8.8 mg/dL (8.4-10.2) 07/11/22 21:35 Total Bilirubin 0.20 mg/dL (0.1-1.2) 07/11/22 21:35 AST 10 units/L (5-40) 07/11/22 21:35 ALT 10 units/L (7-56) 07/11/22 21:35 Alkaline Phosphatase 88 units/L (35-129) 07/11/22 21:35 Total Protein 6.2 g/dL (6.3-8.2) L 07/11/22 21:35 Albumin 3.2 g/dL (3.9-5) L 07/11/22 21:35 Albumin/Globulin Ratio 1.1 % 07/11/22 21:35 Triglycerides 117 mg/dL (2-149) 07/11/22 21:35 Cholesterol 104 mg/dL (50-199) 07/11/22 21:35 LDL Cholesterol Direct 49 mg/dL (50-130) L 07/11/22 21:35 HDL Cholesterol 29 mg/dL (40-59) L 07/11/22 21:35 Cholesterol/HDL Ratio 3.58 % 07/11/22 21:35 TSH 0.808 mlU/mL (0.270-4.200) 07/11/22 21:35 Core Measure Documentation - Palliative Care Palliative Care/ Comfort Measures: Not Applicable - Core Measures Any of the following diagnoses?: none Exam - Constitutional Vitals: Temp Pulse Resp BP Pulse Ox 98.7 F 89 18 152/78 96 07/15/22 19:13 07/15/22 21:21 07/15/22 19:13 07/15/22 21:21 07/15/22 19:13 General appearance: Present: no acute distress - EENT Eyes: Present: PERRL, EOM intact ENT: hearing intact, clear oral mucosa - Neck Neck: Present: supple, normal ROM Plan Activity: advance as tolerated Weight Bearing Status: Weight Bear as Tolerated Care Plan Goals: Maintain good and stable mental health Plan of Treatment: The patient should be compliant with medications, not to use drugs, and not to drink alcohol. The patient understands that if suicidal ideas, homicidal ideas or any endangering feeling arise, the patient should seek assistance including, but not limited to crisis hotline, and emergency room. Assessment: Major Depressive Disorder Cocaine Use Disorder Follow up with: PRIMARY CARE, [Primary Care Provider] - 7 Days Prescriptions: traZODone [Desyrel] 100 mg PO QHS #30 tablet Melatonin [Melatonin 5MG TAB] 5 mg PO QHS PRN #30 tablet PRN Reason: Sleep Divalproex [Marbella Morin] 250 mg PO BID #60 tablet
[2022-07-16 09:13] VITALS: BP 119/58
== END 2022-07-16 11:05 | disposition home or self-care (01) | DRG 885 ==
LOC: UNDOADMIN 14:57 → 3A 14:57 → 5A 07-11 19:56
PROVIDERS: ADMIT Psychiatry & Neurology Psychiatry; ATTEND Psychiatry & Neurology Psychiatry
DX: F31.9 Bipolar disorder, unspecified (principal); F43.10 Post-traumatic stress disorder, unspecified; F14.90 Cocaine use, unspecified, uncomplicated; Z88.8 Allergy status to other drugs, medicaments and biological substances; Z79.82 Long term (current) use of aspirin; Z79.4 Long term (current) use of insulin
CPT/HCPCS: 36415; 80053; 80061; 82962; 83036; 84443; 85025; G0378; Q0177; Q9967; J1815